=== PATIENT | female | born 1940 | race Caucasian/White ===

== ENCOUNTER → 2016-09-24 | Outpatient (CLI) | payer OTHER ==
[~2016-09-24] VITALS: Ht 154.9 cm; Wt 76.3 kg
[~2016-09-24] MED LIST: ADULT LOW DOSE81 MG PO; AMLODIPINE BESY10 MG PO; BENADRYL25 MG PO; CARDIZEM CD120 MG PO; DIOVAN320 MG PO; ELMIRON 100 MG100 M1 PO; FENTANYL PA25 MCG/HR TRANSDERM; FENTANYL PA50 MCG/HR TRANSDERM; FLOMAX0.4 MG PO; HYDROCODON-ACE1 EAC5 OR; HYDROCODON-ACE1 EAC5 PO; LYRICA PO; LYRICA100 MG OR; LYRICA100 MG PO; MAGOX 400400 MG PO; MIRALAX17 GM PO; MOVANTIK25 MG PO; NORTRIPTYLINE H10 M2 PO; OXAZEPAM 15 MG15 M1 OR; OXAZEPAM 15 MG15 M1 PO; OXYCODONE HCL10 MG PO; OXYCODONE HCL15 MG OR; OXYCODONE HCL15 MG PO; OXYCODONE HCL30 MG PO; OXYCODONE-ACET1 EAC2 PO; OXYCONTIN15 MG PO; PACERONE 200 M200 M1 PO; PAXIL10 MG; PAXIL10 MG PO; PROTONIX40 M2 OR; SAVELLA50 MG PO; VAGIFEM25 MCG VG; VANCOMYCIN HCL250 MG PO; VICODIN OR; VITAMIN D1000 UNI1 PO; XARELTO10 MG PO; ZYRTEC OR; [UNRECOGNIZED DRUG - OTHER] PO
--- NOTE | ~2016-09-24 | HPC ---
[facility] [address] [place] [address] PAIN MANAGEMENT CONSULTATION Name: BERTHA RAO Room #: REG CHITRAGil Hernandez#: [id number] Admission: 09/24/16 Attend Phys: Karlos Kelly MD Discharge: Date of : 44 Report #: [id number] THIS REPORT FOR: //name// CC: Yesy Kelly DATE OF SERVICE: 09/24/2016 DATE OF REGISTRATION: 09/24/2016. REASON FOR VISIT: Followup visit for severe back pain with marked dextrorotational kyphoscoliosis. SUBJECTIVE: The patient is here today in a wheelchair with her son, Deshawn who has been caring for her since the passing of her . [facility] It provides at her most recent visits. She was last seen 3 months ago. She is here today for renewal of her medications. I discontinued her fentanyl patch, and she was on oxycodone 10/325 three tablets daily. The reduction in opioid was fairly dramatic, and she has seen an increase in pain. Pain score is 10/10 today, and she describes it as severe ache in her low back and knees. She has difficulty getting in and out of bed and her wheelchair. Her medication does give relief, but she finds that she medication, and I have agreed today to renew her medication with an additional oxycodone tablet, so she can take it 4 times daily. I would like to avoid restarting a long-acting opioid. Her mind is clear. She seems quite lucid today. She does not show any signs of overmedication. It has been almost 2 years now since the passing of her . MEDICATIONS: Include Lyrica 100 mg t.i.d.; Movantik 25 mg as needed for opioid-induced constipation; oxycodone 10/325 t.i.d.; oxazepam 15 mg nightly, she has used this for decades; tamsulosin 0.4 mg daily; Paxil 10 mg daily; Elmiron for cystitis, Xarelto, aspirin and Protonix. PHYSICAL EXAMINATION: GENERAL: She is alert and oriented without signs of overmedication. She had good insight and good memory today. VITAL SIGNS: Blood pressure 115/84, heart rate 102, respirations 14, BMI of 27.8. NEUROLOGIC: She had difficulty standing and is at fall risk. She has marked tenderness along her spine, particularly at the apex of her kyphosis. It radiates along into the upper back in a referred pattern, likely due to spondylosis. [place] [address] PAIN MANAGEMENT CONSULTATION Name: BERTHA RAO Room #: REG Gil Hernandez#: [id number] Admission: 09/24/16 Attend Phys: Karlos Kelly MD Discharge: Date of : 44 Report #: [id number] IMPRESSION: 1. Chronic intractable back pain with severe scoliosis and kyphosis. 2. Management of high-risk medication, oxycodone. 3. Degenerative joint disease and osteoarthritis, multiple joints. 4. Chronic insomnia and anxiety. PLAN: I renewed her medications under terms of our opioid agreement for 3 months. Safeguarding all medications is critical, and I shared this with both her and her son. A followup visit is scheduled in 3 months. By: [id number] Karlos Kelly MD /nt
[2016-09-24 13:07] VITALS: BP 105/68
== END | disposition home or self-care (01) ==
LOC: PAIN 07:14
DX: M41.86 Other forms of scoliosis, lumbar region (principal); G89.29 Other chronic pain; M19.90 Unspecified osteoarthritis, unspecified site; F41.8 Other specified anxiety disorders; F51.04 Psychophysiologic insomnia; F11.20 Opioid dependence, uncomplicated